=== PATIENT | male | born 1970 | race African-American/Black ===

== ENCOUNTER 2017-10-04 10:08 | Emergency (ER) | payer SELFPAY ==
[~2017-10-04] VITALS: Ht 177.8 cm; Wt 78.1 kg
[2017-10-04] MEDS ORDERED: TAMIFLU75 MG PO (11:49)
[2017-10-04 12:03] VITALS: BP 127/88
== END 2017-10-04 12:03 | disposition home or self-care (01) ==
LOC: EME 10:08
PROVIDERS: Emergency Medicine
DX: J10.1 Influenza due to other identified influenza virus with other respiratory manifestations (principal); Z87.891 Personal history of nicotine dependence
CPT/HCPCS: 71046; 87502; 99281; 99283

== ENCOUNTER 2017-12-21 01:35 | Emergency (ER) | payer OTHER ==
[~2017-12-21] VITALS: Ht 180.3 cm; Wt 71.4 kg
[~2017-12-21 01:35] MED LIST: TAMIFLU75 MG PO
[2017-12-21 02:41] VITALS: BP 118/104
== END 2017-12-21 02:41 | disposition home or self-care (01) ==
LOC: EME 01:35
DX: S20.219A Contusion of unspecified front wall of thorax, initial encounter (principal); X58.XXXA Exposure to other specified factors, initial encounter; Y93.83 Activity, rough housing and horseplay; Z87.891 Personal history of nicotine dependence
CPT/HCPCS: 71046; 93005; 99281; 99284

== ENCOUNTER 2018-01-23 22:09 | Emergency (ER) | payer OTHER ==
[~2018-01-23] VITALS: Ht 175.3 cm; Wt 71.3 kg
[2018-01-23 22:13] VITALS: BP 114/101
== END 2018-01-23 23:35 | disposition left against medical advice (07) ==
LOC: EME 22:09
DX: S01.81XA Laceration without foreign body of other part of head, initial encounter (principal); W19.XXXA Unspecified fall, initial encounter; F17.200 Nicotine dependence, unspecified, uncomplicated
CPT/HCPCS: 99281; 99283

== ENCOUNTER 2018-02-04 14:05 | Emergency (ER) | payer OTHER ==
[~2018-02-04] VITALS: Ht 177.8 cm; Wt 75.3 kg
[2018-02-04] MEDS ORDERED: PATANOL OP100 DROP/5 BOTH EYES (14:29)
[2018-02-04] MEDS ORDERED: VIBRAMYCIN100 MG PO (14:29)
[2018-02-04] MEDS ORDERED: DELTASONE20 M1 PO (14:29)
[2018-02-04 14:40] VITALS: BP 138/85
== END 2018-02-04 14:45 | disposition home or self-care (01) ==
LOC: EME 14:05
DX: L73.9 Follicular disorder, unspecified (principal); H10.9 Unspecified conjunctivitis; F17.200 Nicotine dependence, unspecified, uncomplicated
CPT/HCPCS: 99281; 99283